=== PATIENT | male | born 1975 | race Caucasian/White ===

== ENCOUNTER → 2023-08-21 06:46 | Outpatient (REF) | payer OTHER, SELFPAY | LOC: RAD 06:46 | PROVIDERS: ATTENDING PHYSICIAN Internal Medicine | DX: M79.89 Other specified soft tissue disorders (principal) | CPT/HCPCS: 93931 ==

== ENCOUNTER 2023-09-28 16:56 | Emergency (ER) | payer OTHER, SELFPAY ==
[2023-09-28 16:57] VITALS: BP 150/87
[2023-09-28 17:45] VITALS: BMI 25.8
--- NOTE | 2023-09-28 18:15 | ED.GENMED ---
History of Present Illness
General
Chief Complaint: Skin Problem
Source: patient
Exam Limitations: none
Time Seen by Provider: 09/28/23 17:55
Nursing documentation reviewed up to this point in time: agreed with
Travel History
Have you had any contact with someone who has COVID-19?: No
Do you have any symptoms of coronavirus? Fever > 100 degrees, chills, cough, shortness of breath, sore throat, loss of taste or smell, muscle aches, or headache?: No
History of Present Illness
History of Present Illness:
48 yo male presents to the emergency department complaining of a rash to his left forehead that began 6 days ago. He denies any eye pain or irritation. No fevers. No shortness of breath or cough.
Past History
Past History
ED Past Medical History: Psychiatric (Bipolar)
ED Past Surgical History: Orthopedic (Bone spur left foot, meniscus repair right knee) and Other (Broken nose)
Social History
Tobacco: Non-smoker
Alcohol: None
Drug: None
Review of Systems
Review of Systems
Allergies reviewed?: Yes
All Other Systems: Not applicable
Constitutional: Reports no symptoms
EENT: Reports no symptoms
Respiratory: Reports no symptoms
Cardiac: Reports no symptoms
ABD/GI: Reports no symptoms
: Reports no symptoms
Musculoskeletal: Reports no symptoms
Skin: Reports itching and rash
Neurological: Reports no symptoms
Endocrine: Reports no symptoms
Hematologic/Lymphatic: Reports no symptoms
Psychiatric: Reports no symptoms
Phy Exam
Physical Exam
Physical Exam:
Physical Exam
General: no apparent distress, not acutely ill
Neck: supple. no meningeal signs. normal posterior pharynx
Heart: equal radial pulses.
HEENT: Pupils equal round reactive to light, EOMI
Lungs: no acute respiratory distress. clear bilaterally
Abdomen: Nondistended
Neuro: alert and oriented. no focal neurological deficits cranial nerves II through XII intact
Skin: Vesicular rash left forehead, dermatomal distribution
Psychiatric: well kept. interactive and cooperative
Extremities: no edema. good distal pulses
Eye Exam
Eye Exam: PERRL, EOMI and cornea clear
Eye Exam General: PERRL: bilateral
Pupil Exam: Bilateral: round and reactive
Conjunctival Changes: bilateral: none
Pupil and Lens Exam: round pupil: Bilateral
Type of Exam: simple and fluorescein
Cause of eyelid Inflammation: herpes zoster: Bilateral
Course
Vital Signs
Initial and Last Documented VS:
Initial Vital Signs
Temp Pulse Resp BP Pulse Ox
98.9 F 81 20 150/87 100
09/28/23 16:57 09/28/23 16:57 09/28/23 16:57 09/28/23 16:57 09/28/23 16:57
Last Documented Vital Signs
Temp Pulse Resp BP Pulse Ox
98.9 F 81 20 150/87 100
09/28/23 16:57 09/28/23 16:57 09/28/23 16:57 09/28/23 16:57 09/28/23 16:57
MDM/Problems Addressed
Differential Diagnosis Includes:
Herpes conjunctivitis, shingles
MDM/Problems Addressed:
48-year-old male with shingles, trigeminal nerve distribution, no involvement of cornea. Treat with Valtrex. Follow-up with primary care.
Chronic conditions affecting care: Psychiatric illness (Bipolar)
*Pulse Oximetry
Patient hypoxic: no
*EKG
Interpreted by ED Provider?: NA
*Assembly Line Worker Interpretation
Rate: Assembly Line Worker- N/A
*Critical Care Note
Total Time (30-74mins, 75-104mins- exclusive of procedures): Not Applicable
Patient Management
Social determinants of health affecting care: Living situation
Escalation/DeEscalation of care consider admission/obs:
admit not indicated
ED Attending Note
-
Portions of this chart may have been created with voice recognition software.� Occasional wrong word or��sound alike� substitutions may have occurred due to the inherent limitations of voice recognition software.
Discharge Plan
Departure
Patient Disposition: Home (Routine Discharge)
Date of Disposition: 09/28/23
Time of Disposition: 18:16
Patient with high blood pressure during this ER visit?: Yes
Condition: Good
Discharge Problem:
Shingles rash
Instructions: Shingles, BLOOD PRESSURE
Prescriptions:
New
valacyclovir [Valtrex] 1 gram tablet
1,000 mg PO TID 10 Days Qty: 30 0RF
Referrals:
Champ Davis, DO [Family Provider] - Call in 1-3 days for appt
Interventions
Interventions:
*Risk Screen - Suicide Last Done: 09/28/23 17:02
*General Assessment Last Done: 09/28/23 17:02
*Neglect/Abuse Screening Last Done: 09/28/23 17:02
ED- Fall Risk Assessment Last Done: 09/28/23 17:45
*ED COVID-19 Vaccine History Last Done: 09/28/23 17:45
ED-Skin Assessment Last Done: 09/28/23 17:45
Discharge Date and Time
Print Language: MACEDONIAN
== END 2023-09-28 18:28 | disposition home or self-care (01) ==
LOC: EMR 16:56
PROVIDERS: EMERGENCY PHYSICIAN Emergency Medicine; FAMILY PHYSICIAN Internal Medicine
DX: B02.9 Zoster without complications (principal); R03.0 Elevated blood-pressure reading, without diagnosis of hypertension
CPT/HCPCS: 99282

== ENCOUNTER → 2024-09-14 08:53 | Outpatient (REF) | payer OTHER, SELFPAY | LOC: RAD 08:53 | PROVIDERS: ATTENDING PHYSICIAN Student in an Organized Health Care Education/Training Program; FAMILY PHYSICIAN Internal Medicine | DX: M25.50 Pain in unspecified joint (principal); M79.641 Pain in right hand; R21 Rash and other nonspecific skin eruption | CPT/HCPCS: 73120 ==